=== PATIENT | male | born 1975 ===

== ENCOUNTER 2019-03-02 11:30 | Inpatient (IN) | payer OTHER ==
[~2019-03-02] VITALS: Ht 175.3 cm; Wt 127.0 kg
[2019-03-02] MEDS ORDERED: BIOTIN1000 MCG PO (14:02)
[2019-03-02] MEDS ORDERED: MAGNESIU PO (14:03)
[2019-03-02] MEDS ORDERED: [UNRECOGNIZED DRUG - OTHER] PO (14:03)
[2019-03-10] MEDS ORDERED: MAGOX 400400 MG PO (09:42)
[2019-03-10] MEDS ORDERED: PROBIOTIC-10 11 EACH PO (09:43)
[2019-03-10] MEDS ORDERED: A AND D OINTM42.5 GM (09:43)
[2019-03-10] MEDS ORDERED: HYFIBER WI12 GM/302 PO (09:48)
== END 2019-03-20 09:37 | disposition home or self-care (01) | DRG 330 ==
LOC: O/R 11:30 → SURG 03-10 07:44 → SURH 03-10 11:30 → SURG 03-10 18:45 → SURH 03-10 20:09 → SURG 03-10 20:23
PROVIDERS: ADMIT Colon & Rectal Surgery
PROC: 07TB4ZZ Resection of Mesenteric Lymphatic, Percutaneous Endoscopic Approach (ICD-10-PCS; 2019-03-10)
PROC: 0DTH4ZZ Resection of Cecum, Percutaneous Endoscopic Approach (ICD-10-PCS; principal; 2019-03-10 09:00)
PROC: BW21ZZZ Computerized Tomography (CT Scan) of Abdomen and Pelvis (ICD-10-PCS; 2019-03-14)
DX: C18.1 Malignant neoplasm of appendix (principal); K91.31 Postprocedural partial intestinal obstruction; T81.41XA Infection following a procedure, superficial incisional surgical site, initial encounter; R59.0 Localized enlarged lymph nodes; K38.2 Diverticulum of appendix; K63.89 Other specified diseases of intestine; N20.0 Calculus of kidney